=== PATIENT | female | born 1930 | race Hispanic/Latino ===

== ENCOUNTER 2018-03-03 12:44 | Outpatient (CLI) | payer MEDICARE, BC | END 2018-03-03 12:45 | disposition home or self-care (01) | LOC: RAD 12:44 ==

== ENCOUNTER 2018-03-10 12:24 | Outpatient (CLI) | payer MEDICARE, BC | END 2018-03-10 12:25 | disposition home or self-care (01) | LOC: RAD 12:24 ==